=== PATIENT | female | born 1945 | race Caucasian/White ===

== ENCOUNTER 2020-08-26 07:50 | Inpatient (IN) ==
[2020-08-26 08:17] LABS: Basophils # 0.1 K/mcL (0.0-0.2); Basophils % 0.6 %; Eosinophils % 0.4 %; Hematocrit 34.7 % (35.3-44.9); Hemoglobin 11.1 g/dL (11.5-15.4); Immature Granulocytes % 1.1 % (0-4); Lymphocytes # 2.2 K/mcL (0.6-4.6); Lymphocytes % 26.9 %; Mean Corpuscular Hemoglobin 29.9 pg (28.0-33.3); Mean Corpuscular Volume 93.5 fL (83.0-100.0); Mean Platelet Volume 10.2 fL (9.4-12.4); Monocytes # 0.8 K/mcL (0.0-1.3); Monocytes % 9.8 %; Platelet Count 288 K/mcL (140-400); Red Blood Count 3.71 M/mcL (3.82-4.97); Red Cell Distribution Width 14.8 % (11.5-14.5); Segmented Neutrophils % 61.2 %; White Blood Count 8.1 K/mcL (4.3-11.1)
[2020-08-26] MEDS ORDERED: Scopolamine Patch 1.5 MG PATCH.TD72 TD STA (08:24)
[2020-08-26 08:25] LABS: INR 1.2; Prothrombin Time 13.6 Seconds (9.4-12.1)
[2020-08-26 08:32] LABS: BUN/Creatinine Ratio 25 (6-26); Blood Urea Nitrogen 37 mg/dL (8-23); Calcium 8.1 mg/dL (8.6-10.3); Carbon Dioxide 21 mEq/L (23-29); Chloride 104 mEq/L (98-107); Glucose 125 mg/dL (70-105); Osmolality,Calculated 292 (280-300); Potassium 3.8 mEq/L (3.5-5.1); Sodium 136 mEq/L (136-145); eGFR For African Americans 41 (> 60); eGFR For Non-African Americans 34 (> 60)
[2020-08-26 08:36] LABS: Troponin I < 0.03 ng/mL (< 0.04)
[2020-08-26] MEDS ORDERED: 0.9 % Sodium Chloride 1,000 ML IVC ONE (09:49)
[2020-08-26 10:12] LABS: ABG Base Excess -3 mEq/L (-2 to 3); ABG HCO3 21 mEq/L (21-27); ABG Oxygen Saturation 93 % (95-98); ABG PCO2 36 mmHg (35-45); ABG PH 7.39 pH Units (7.32-7.45); ABG PO2 66 mmHg (85-104); ABG TCO2 22 mEq/L (20-26)
[2020-08-26] MEDS ORDERED: Dexamethasone 4 MG/ML VIAL IVP ONE (10:19)
[2020-08-26] MEDS ORDERED: MOM Conc 10 ML UD.LIQ PO PRN (14:30)
[2020-08-26] MEDS ORDERED: Naloxone 0.4 MG/ML INJ IVP PRN (14:30)
[2020-08-26] MEDS ORDERED: Ondansetron ODT 4 MG TAB.RAPDIS SL PRN (14:30)
[2020-08-26] MEDS ORDERED: Mag Hydrox/Al Hydrox/Simeth 30 ML UDC PO PRN (14:30)
[2020-08-26] MEDS ORDERED: D5% in Water 1,000 ML IVC PRN (14:37)
[2020-08-26] MEDS ORDERED: *HR* Dextrose 50 % in Water (Vial) 50 ML VIAL IVP PRN (14:37)
[2020-08-26] MEDS ORDERED: Dextrose Gel 15 GM/37.5 ML TUBE PO PRN ×2 (14:37)
[2020-08-26 16:36] LABS: Bilirubin,Urine Negative (Negative); Blood,Urine Negative (Negative); Clarity,Urine Clear (Clear); Color,Urine Yellow (Yellow); Glucose,Urine (UA) Normal (Normal); Ketones,Urine Negative (Negative); Leukocyte Esterase,Urine Negative (Negative); Nitrite,Urine Negative (Negative); PH,Urine 5.5 pH Units (5.0-8.0); Protein,Urine Negative (Neg-Trace); Urobilinogen,Urine Normal (Normal)
[2020-08-26] MEDS: levoFLOXacin 750 MG/150 ML 750 MG/150 ML BAG IVPB SCH (16:43)
[2020-08-26] MEDS: Insulin LISPRO 300 UNITS/3 ML VIAL SUBQ SCH ×2 (16:43→21:35)
[2020-08-26] MEDS: 0.9 % Sodium Chloride 1,000 ML IVC SCH (16:45)
[2020-08-26 20:52] LABS: C-Reactive Protein 115 mg/L (Less than 10)
[2020-08-26 21:11] LABS: Ferritin 196 ng/mL (10-120)
[2020-08-27] MEDS: 0.9 % Sodium Chloride 1,000 ML IVC SCH (05:34)
[2020-08-27] MEDS ORDERED: *HR* Enoxaparin 40 MG/0.4 ML SYRINGE SQ SCH (06:00)
[2020-08-27] MEDS: Budesonide/Formoterol 160/4.5 1 PUFF INH IH SCH ×2 (07:29→21:07)
[2020-08-27] MEDS: Tiotropium 10 INH DOSE IH SCH (07:29)
[2020-08-27] MEDS ORDERED: Metoprolol XL (24 HR) Succ 50 MG TAB.ER.24H PO SCH (09:00)
[2020-08-27] MEDS: Benzonatate 100 MG CAPSULE PO PRN ×2 (09:55→20:34)
[2020-08-27] MEDS: Acetaminophen 325 MG TABLET PO PRN (09:55)
[2020-08-27] MEDS: Aspirin Enteric Coated 81 MG Tablet PO SCH (09:55)
[2020-08-27] MEDS: Cholecalciferol (D-3) 1,000 UNIT (25MCG) TABLET PO SCH (09:56)
[2020-08-27] MEDS: Dexamethasone 4 MG/ML VIAL IVP SCH (09:56)
[2020-08-27] MEDS: Insulin LISPRO 300 UNITS/3 ML VIAL SUBQ SCH ×4 (10:03→20:10)
[2020-08-27] MEDS ORDERED: Dextromethorphan Polistrx(12h) 30 MG/5 ML UDC PO PRN (10:08)
[2020-08-27] MEDS: *HR* Glimepiride 2 MG TABLET PO SCH (10:10)
[2020-08-27] MEDS: *HR* HYDROcodone/Acet 5/325 mg TABLET PO PRN (17:40)
[2020-08-27] MEDS: traZODone 50 MG TABLET PO PRN (20:33)
[2020-08-28] MEDS: *HR* Enoxaparin 30 MG/0.3 ML SYRINGE SQ SCH (05:29)
[2020-08-28 06:52] LABS: Basophils % 0.1 %; Hematocrit 30.4 % (35.3-44.9); Hemoglobin 9.8 g/dL (11.5-15.4); Immature Granulocytes % 1.2 % (0-4); Lymphocytes # 1.2 K/mcL (0.6-4.6); Lymphocytes % 14.5 %; Mean Corpuscular HGB Conc 32.2 g/dL (31.6-35.5); Mean Corpuscular Hemoglobin 30.2 pg (28.0-33.3); Mean Corpuscular Volume 93.5 fL (83.0-100.0); Mean Platelet Volume 10.3 fL (9.4-12.4); Monocytes # 0.6 K/mcL (0.0-1.3); Monocytes % 7.2 %; Neutrophils # 6.3 K/mcL (1.6-8.9); Platelet Count 287 K/mcL (140-400); Red Blood Count 3.25 M/mcL (3.82-4.97); Red Cell Distribution Width 14.7 % (11.5-14.5); White Blood Count 8.2 K/mcL (4.3-11.1)
[2020-08-28 07:20] LABS: Calcium 7.8 mg/dL (8.6-10.3); Potassium 3.7 mEq/L (3.5-5.1)
[2020-08-28] MEDS: Tiotropium 10 INH DOSE IH SCH (08:45)
[2020-08-28] MEDS: Budesonide/Formoterol 160/4.5 1 PUFF INH IH SCH ×2 (08:45→20:46)
[2020-08-28] MEDS: Aspirin Enteric Coated 81 MG Tablet PO SCH (08:59)
[2020-08-28] MEDS: Cholecalciferol (D-3) 1,000 UNIT (25MCG) TABLET PO SCH (08:59)
[2020-08-28] MEDS: Dexamethasone 4 MG/ML VIAL IVP SCH (09:03)
[2020-08-28] MEDS: Insulin LISPRO 300 UNITS/3 ML VIAL SUBQ SCH ×4 (09:10→20:42)
[2020-08-28] MEDS: *HR* Glimepiride 2 MG TABLET PO SCH (09:26)
[2020-08-28] MEDS: *HR* HYDROcodone/Acet 5/325 mg TABLET PO PRN ×2 (11:54→20:41)
[2020-08-28] MEDS: Benzonatate 100 MG CAPSULE PO PRN ×2 (11:54→20:40)
[2020-08-28] MEDS: levoFLOXacin 750 MG/150 ML 750 MG/150 ML BAG IVPB SCH (17:10)
[2020-08-28] MEDS: traZODone 50 MG TABLET PO PRN (20:40)
[2020-08-29] MEDS: Benzonatate 100 MG CAPSULE PO PRN ×2 (03:20→09:21)
[2020-08-29] MEDS: *HR* Enoxaparin 30 MG/0.3 ML SYRINGE SQ SCH (06:11)
[2020-08-29] MEDS: *HR* HYDROcodone/Acet 5/325 mg TABLET PO PRN (06:17)
[2020-08-29 07:36] LABS: Hematocrit 28.9 % (35.3-44.9); Hemoglobin 9.3 g/dL (11.5-15.4); Mean Corpuscular HGB Conc 32.2 g/dL (31.6-35.5); Mean Corpuscular Hemoglobin 30.1 pg (28.0-33.3); Mean Corpuscular Volume 93.5 fL (83.0-100.0); Mean Platelet Volume 10.4 fL (9.4-12.4); Platelet Count 270 K/mcL (140-400); Red Blood Count 3.09 M/mcL (3.82-4.97); White Blood Count 11.3 K/mcL (4.3-11.1)
[2020-08-29 07:46] VITALS: BP 126/70
[2020-08-29 07:53] LABS: Calcium 7.6 mg/dL (8.6-10.3); Potassium 3.8 mEq/L (3.5-5.1)
[2020-08-29] MEDS: Tiotropium 10 INH DOSE IH SCH (08:32)
[2020-08-29] MEDS: Budesonide/Formoterol 160/4.5 1 PUFF INH IH SCH (08:33)
[2020-08-29] MEDS: Insulin LISPRO 300 UNITS/3 ML VIAL SUBQ SCH ×2 (09:18→11:47)
[2020-08-29] MEDS: Dexamethasone 4 MG/ML VIAL IVP SCH (09:21)
[2020-08-29] MEDS: Aspirin Enteric Coated 81 MG Tablet PO SCH (09:23)
[2020-08-29] MEDS: Acetaminophen 325 MG TABLET PO PRN (09:23)
[2020-08-29] MEDS: Cholecalciferol (D-3) 1,000 UNIT (25MCG) TABLET PO SCH (09:23)
[2020-08-29] MEDS: *HR* Glimepiride 2 MG TABLET PO SCH (09:27)
[2020-08-30] MEDS ORDERED: levoFLOXacin 750 MG TABLET PO SCH (18:00)
== END 2020-08-29 13:31 | disposition home or self-care (01) | DRG 177 ==
LOC: INPPIK 07:50 → EMEROOPIK 07:50 → INPPIK 13:37
PROVIDERS: ADMIT Family Medicine; ATTEND Family Medicine